=== PATIENT | male | born 1995 | race African-American/Black ===

== ENCOUNTER 2017-04-06 16:19 | Emergency (ER) | payer SELFPAY ==
[~2017-04-06] VITALS: Ht 170.2 cm; Wt 77.0 kg
[2017-04-06 16:21] VITALS: BP 107/54; PULSE 61; RESP 15; TEMP 98.4; O2SAT 98
[2017-04-06] MEDS ORDERED: IBUPROFEN 800 MG TAB PO ONE (17:00)
--- NOTE | 2017-04-06 17:05 | PD ---
HPI Chief Complaint: Injury Time Seen by Provider: 16:48 Travel History International Travel<30 days: No Contact w/Intl Traveler<30days: No Traveled to known affect area: No History of Present Illness HPI 21-year-old male presents to emergency Department with complaint of left hand and wrist pain after injuring it while playing football today. Denies paresthesias, loss of sensation to the affected extremity. Reports decreased range of motion secondary to pain. Has not taken any medications or drainage to alleviate his symptoms. Symptoms are mild in severity. Has no medical complaints. No known allergies. No other modifying factors or associated signs and symptoms. PFSH Past Medical History Hx Anticoagulant Therapy: No ADHD: Yes Asthma: Yes Bipolar Disorder: Yes Cardiovascular Problems: No Chemotherapy: No Cerebrovascular Accident: No Developmental Delay: No Diabetes: No Diminished Hearing: No Headaches: Yes Psychiatric: Yes (ANGER ISSUES) Respiratory: Yes (ASTHMA) Immunizations Current: Yes Seizures: No PNEUMOCCOCAL Vaccine (Year): 2 ?: Not Past Surgical History Hysterectomy: No Social History Alcohol Use: No Tobacco Use: Yes Substance Use: Yes (marijuana) Allergies-Medications (Allergen,Severity, Reaction): Coded Allergies: No Known Allergies (Verified , 04/06/17) Reported Meds & Prescriptions Reported Meds & Active Scripts Active Review of Systems Except as stated in HPI: all other systems reviewed are Neg Physical Exam Narrative GENERAL: Well-nourished, well-developed female patient, in no acute distress SKIN: Warm and dry. HEAD: Atraumatic. Normocephalic. EYES: Pupils equal and round. No scleral icterus. No injection or drainage. ENT: Mucosa pink and moist. Airway patent. NECK: Trachea midline. CARDIOVASCULAR: Regular rate. RESPIRATORY: No accessory muscle use. GASTROINTESTINAL: Flat. MUSCULOSKELETAL: Left hand and wrist with minimal edema; without erythema, ecchymosis; no obvious deformity; hand and wrist with tenderness on palpation; fingers with full range of motion; sensory intact; 2+ radial pulse. Left upper extremity is supple and non-tense. No obvious deformities. No clubbing. No cyanosis. NEUROLOGICAL: Awake and alert. Oriented 3. No obvious cranial nerve deficits. Motor grossly within normal limits. Normal speech. PSYCHIATRIC: Appropriate mood and affect; insight and judgment normal. Data Data Last Documented VS Vital Signs Date Time Temp Pulse Resp B/P (MAP) Pulse Ox O2 Delivery O2 Flow Rate FiO2 9/12/17 16:33 Room Air 04/06/17 16:21 98.4 61 15 107/54 (71) 98 Orders Orders Ibuprofen (Motrin) (04/06/17 17:00) Hand, Complete ([id number]) (04/06/17 16:47) Wrist, Complete (Sjn2bra) (04/06/17 16:47) Splint Or Brace Apply/Monitor (04/06/17 17:45) [facility] Medical Decision Making Medical Screen Exam Complete: Yes Emergency Medical Condition: Yes Medical Record Reviewed: Yes Differential Diagnosis Fracture, sprain, injury Narrative Course 21-year-old male with left wrist and hand injury. Ibuprofen administered in the ER. Left hand and wrist x-ray ordered. 1746: Left hand and wrist x-ray conclude: Last 24 hours Impressions Wrist X-Ray 04/06/171646 Signed Impressions: Service Date/Time: Thursday, April 06, 2017 17:12 - CONCLUSION: 1. Negative examination. Ken Prescott MD Hand X-Ray 04/06/171646 Signed Impressions: Service Date/Time: Thursday, April 06, 2017 17:11 - CONCLUSION: 1. No acute bony abnormality identified. 2. Soft tissue swelling. Ken Prescott MD Velcro wrist splint provided for support. Ibuprofen prescribed for home. Instructed patient to follow up with primary care provider. Patient verbalizes understanding and agreement with treatment plan. Patient is medically cleared and stable for discharge. Discussed reasons to return to the emergency department. Patient agrees with treatment plan. The patients vital signs are stable and the patient is stable for outpatient follow-up and treatment. Patient discharged home, stable and in no acute distress. Diagnosis Primary Impression: Injury of left hand Qualified Codes: S69.92XA - Unspecified injury of left wrist, hand and finger( s), initial encounter Additional Impression: Left wrist injury Qualified Codes: S69.92XA - Unspecified injury of left wrist, hand and finger( s), initial encounter Med/Other Pt SpecificInfo: Prescription(s) given Scripts Ibuprofen (Ibuprofen) 800 Mg Tab 800 MG PO Q6HR Y for PAIN, #30 TAB 0 Refills Prov: Mandi Barrett 04/06/17 Disposition: 01 DISCHARGE HOME Condition: Stable Mandi Barrett Apr 06, 2017 17:05
--- NOTE | 2017-04-06 17:31 | RADRPT ---
EXAM DATE/TIME: 04/06/2017 17:11 [facility] COMPARISON: SPINE LUMBAR LTD (AP & LAT), August 28, 2013, 14:19. INDICATIONS : Left hand pain. Patient hurt hand while playing football. MEDICAL HISTORY : Prior wrist fracture. SURGICAL HISTORY : None. ENCOUNTER: Initial ACUITY: 1 day PAIN SCORE: 10/10 LOCATION: Left hand. FINDINGS: Three-view examination of the left hand demonstrates soft tissue swelling above the fifth metacarpal. The osseous structures are intact without evidence of fracture or dislocation. The carpal bones ap pear intact. The interphalangeal and metacarpophalangeal joints are intact. Bony mineralization is normal. CONCLUSION: 1. No acute bony abnormality identified. 2. Soft tissue swelling. Ken Prescott MD on April 06, 2017 at 17:29 Board Certified Radiologist. This report was verified electronically.
--- NOTE | 2017-04-06 17:32 | RADRPT ---
EXAM DATE/TIME: 04/06/2017 17:12 [facility] COMPARISON: HAND LEFT COMPLETE ([id number]), April 06, 2017, 17:11. INDICATIONS : Left wrist pain. Patient hurt hand while playing football. MEDICAL HISTORY : None. Prior left wrist fracture. SURGICAL HISTORY : None. ENCOUNTER: Initial ACUITY: 1 day PAIN SCORE: 10/10 LOCATION: Left wrist. FINDINGS: Three view examination of the left wrist demonstrates no soft tissue swelling, dislocation, or fractu re. The carpal bones are in normal alignment. The joint spaces are maintained. Bony mineralization is normal. CONCLUSION: 1. Negative examination. Ken Prescott MD on April 06, 2017 at 17:30 Board Certified Radiologist. This report was verified electronically.
[2017-04-06] MEDS ORDERED: IBUP800T23 PO (17:47)
== END 2017-04-06 18:04 | disposition home or self-care (01) ==
LOC: EDTENT 16:19
DX: S69.92XA Unspecified injury of left wrist, hand and finger(s), initial encounter (principal); F90.9 Attention-deficit hyperactivity disorder, unspecified type; J45.909 Unspecified asthma, uncomplicated; F31.9 Bipolar disorder, unspecified; Y93.61 Activity, american tackle football; Z72.0 Tobacco use
CPT/HCPCS: 73110; 73130; 99283; L3908